=== PATIENT | female | born 1995 | race Caucasian/White ===

== ENCOUNTER → 2019-04-05 10:13 | Outpatient (BNVA) | payer MEDICAID, SELFPAY | PROVIDERS: Visit Provider Nurse Practitioner Women's Health | DX: Z34.81 Encounter for supervision of other normal pregnancy, first trimester; Z3A.09 9 weeks gestation of pregnancy | CPT/HCPCS: 84315 ==

== ENCOUNTER → 2019-04-17 15:18 | Outpatient (BNVA) | payer MEDICAID, SELFPAY | PROVIDERS: Visit Provider Obstetrics & Gynecology | DX: Z34.81 Encounter for supervision of other normal pregnancy, first trimester (principal) | CPT/HCPCS: 80307; 84315; 85027; 86592; 86762; 86803; 86850; 86900; 87086; 87340; 87806 ==

== ENCOUNTER → 2019-05-01 15:17 | Outpatient (BNVA) | payer BC, MEDICAID, SELFPAY | PROVIDERS: Visit Provider Obstetrics & Gynecology | DX: Z34.81 Encounter for supervision of other normal pregnancy, first trimester (principal); N89.8 Other specified noninflammatory disorders of vagina | CPT/HCPCS: 84315; 87070; 87491; 87591 ==

== ENCOUNTER → 2019-05-26 15:30 | Outpatient (BNVA) | payer MEDICAID, SELFPAY | PROVIDERS: Visit Provider Obstetrics & Gynecology | DX: Z01.89 Encounter for other specified special examinations (principal) | CPT/HCPCS: 84315 ==

== ENCOUNTER → 2019-06-21 10:44 | Outpatient (BNVA) | payer MEDICAID, SELFPAY | PROVIDERS: Visit Provider Obstetrics & Gynecology | DX: Z36.89 Encounter for other specified antenatal screening (principal); Z3A.20 20 weeks gestation of pregnancy | CPT/HCPCS: 76805 ==

== ENCOUNTER → 2019-06-27 14:11 | Outpatient (BNVA) | payer MEDICAID, SELFPAY | PROVIDERS: Visit Provider Obstetrics & Gynecology | DX: Z01.89 Encounter for other specified special examinations (principal) | CPT/HCPCS: 84315 ==

== ENCOUNTER → 2019-07-05 10:01 | Outpatient (BNVA) | payer MEDICAID, SELFPAY | PROVIDERS: Visit Provider Obstetrics & Gynecology | DX: Z34.92 Encounter for supervision of normal pregnancy, unspecified, second trimester (principal); Z3A.21 21 weeks gestation of pregnancy | CPT/HCPCS: 76816 ==

== ENCOUNTER → 2019-07-24 15:27 | Outpatient (BNVA) | payer MEDICAID, SELFPAY | PROVIDERS: Visit Provider Obstetrics & Gynecology | DX: Z34.90 Encounter for supervision of normal pregnancy, unspecified, unspecified trimester (principal) | CPT/HCPCS: 82950; 84315 ==

== ENCOUNTER → 2019-08-21 11:10 | Outpatient (BNVA) | payer MEDICAID, SELFPAY | PROVIDERS: Visit Provider Obstetrics & Gynecology | DX: Z34.83 Encounter for supervision of other normal pregnancy, third trimester (principal) | CPT/HCPCS: 84315; 85027 ==

== ENCOUNTER → 2019-10-16 14:19 | Outpatient (BNVA) | payer MEDICAID, SELFPAY | PROVIDERS: Visit Provider Obstetrics & Gynecology | DX: Z34.90 Encounter for supervision of normal pregnancy, unspecified, unspecified trimester (principal); Z34.83 Encounter for supervision of other normal pregnancy, third trimester | CPT/HCPCS: 84315; 87081 ==

== ENCOUNTER → 2019-10-30 14:05 | Outpatient (BNVA) | payer MEDICAID, SELFPAY | PROVIDERS: Visit Provider Obstetrics & Gynecology | DX: O99.013 Anemia complicating pregnancy, third trimester; Z3A.38 38 weeks gestation of pregnancy | CPT/HCPCS: 84315 ==

== ENCOUNTER 2019-11-09 10:22 | Observation (INO) | payer BC, MEDICAID, SELFPAY ==
[2019-11-09 10:31] VITALS: BP 128/74; PULSE 114
[2019-11-09 10:35] VITALS: RESP 18; TEMP 36.4
[2019-11-09 10:43] VITALS: BMI 25.4
[2019-11-09 11:01] VITALS: BP 99/61; PULSE 124
[2019-11-09 11:31] VITALS: BP 115/75; PULSE 105
[2019-11-09 12:01] VITALS: BP 111/69; PULSE 101
[2019-11-09 12:33] VITALS: BP 111/69; PULSE 101; RESP 18; TEMP 36.5
== END 2019-11-09 12:25 | disposition home or self-care (01) ==
PROVIDERS: Admitting Provider Obstetrics & Gynecology; PCP Obstetrics & Gynecology; Visit Provider Obstetrics & Gynecology
DX: O26.899 Other specified pregnancy related conditions, unspecified trimester (principal)
CPT/HCPCS: 99211; G0378; G0379

== ENCOUNTER → 2019-11-13 08:40 | Outpatient (BNVA) | payer BC, MEDICAID, SELFPAY | PROVIDERS: PCP Obstetrics & Gynecology; Visit Provider Obstetrics & Gynecology | DX: O48.0 Post-term pregnancy (principal); O99.013 Anemia complicating pregnancy, third trimester; Z3A.40 40 weeks gestation of pregnancy | CPT/HCPCS: 76816; 76819 ==

== ENCOUNTER 2019-11-13 13:24 | Inpatient (IN) | payer BC, MEDICAID, SELFPAY ==
[2019-11-13] VITALS (70 sets, daily range): BP systolic 0–150; BP diastolic 0–89; PULSE 75–130; RESP 16–18; TEMP 36.9–37.2; O2SAT 89–100; BMI 25.4
[2019-11-13] MEDS: miSOPROStol 100 mcg tablet 25 MCG VAGINAL (14:31)
[2019-11-13] MEDS: lactated ringers 1,000 ML 999 ML IV ×2 (19:00→20:02)
[2019-11-13 19:53] LABS: Basophils % 0.3 %; Eosinophils # 0.1 10^3/uL (0.0-0.8); Hemoglobin 12.8 g/dL (11.5-15.3); Lymphocytes # 2.4 10^3/uL (0.8-4.8); Lymphocytes % 18.3 %; Mean Corpuscular Hemoglobin 28.9 pg (28.0-34.0); Mean Corpuscular Volume 90.3 fL (81-99); Mean Platelet Volume 11.9 fL (7.4-10.4); Monocytes # 0.8 10^3/uL (0.2-0.9); Monocytes % 5.7 %; Neutrophils # 9.77 10^3/uL (1.8-7.7); Neutrophils % 74.2 %; Nucleated Red Blood Cells % 0 %; Platelet Count 246 10^3/cmm (130-400); Red Blood Count 4.43 10^6/uL (4.1-5.3); Red Cell Distribution Width 16.5 % (12.1-15.1); White Blood Count 13.2 10^3/uL (4.0-10.0)
--- NOTE | 2019-11-13 20:34 | P.ANESASSM_ITS ---
Pre-Anesthetic Assessment Pre-Anesthetic Assessment: Height/Weight: Height 1.65 m Weight 69.4 kg Temp Pulse Resp BP 98.5 F 83 18 125/63 11/13/19 17:32 11/13/19 17:29 11/13/19 17:32 11/13/19 17:29 Preop Diagnosis: IUP Proposed Procedure: -l-a-[id number]-r- Familial anesthetic complications: epidural Was Beta Peter taken within 24 hours: N/A Last In take: 12:00 Social: Social History: No alcohol and No tobacco (stop at 18) Exam: Pre-Anes Outpt Exam: alert, oriented x 3, clear to auscultation bilaterally and regular rate & rhythm Airway: Submandibular: WNL Cervical ROM: WNL MP: 2 Dentition: Full History/ROS: No significant history except as noted Anesthetic Plan: ASA status: 2 Anesthesia: Eval. for regional block and Regional (specify below) (epidural) Risk of > 500 ml blood loss (7ml/kg in children): No Meds/Allergies Current Medications: Current Medications Generic Name Dose Route Start Last Admin Trade Name Freq PRN Reason Stop Dose Admin Misoprostol 25 mcg 11/13/19 14:15 11/13/19 14:31 Cytotec VAGINAL 11/13/19 22:16 25 mcg Q4H JM Administration PFSH Anesthesia PFSH: Medical History Patient denies medical problems Denies htn,dm,thyroid,dvt/pe,herpes Surgical History No pertinent past surgical history Family History Grandmother Diabetes Paternal grandmother Hyperlipidemia Paternal grandmother Denies family history of CAD (coronary artery disease) Cancer Hypertension Stroke Social History (Updated 11/13/19 @ 09:45 by Sondra Salvador RN) Smoking and tobacco status: former smoker Quit status (tobacco): has quit using tobacco Former quit date comment: Smoked when she was 17 or 18. Alcohol intake: former Former alcohol use details: Socially before she found out she Female Reproductive History: : 3 Data Anesthesia CBC & Chem 7: 11/13/19 19:42 Other Labs: Laboratory Results - last 48 hr 11/13/19 11/13/19 14:40 19:42 WBC Cancelled 13.2 H Corrected WBC Cancelled RBC Cancelled 4.43 Hgb Cancelled 12.8 Hct Cancelled 40.0 MCV Cancelled 90.3 MCH Cancelled 28.9 MCHC Cancelled 32.0 RDW Cancelled 16.5 H Plt Count Cancelled 246 MPV Cancelled 11.9 H Gran % Cancelled Neut % (Auto) Cancelled 74.2 Lymph % (Auto) Cancelled 18.3 [place] % (Auto) Cancelled 5.7 Eos % (Auto) Cancelled 1.0 Baso % (Auto) Cancelled 0.3 Neut # (Auto) Cancelled 9.77 H Lymph # (Auto) Cancelled 2.4 [place] # (Auto) Cancelled 0.8 Eos # (Auto) Cancelled 0.1 Baso # (Auto) Cancelled 0.0 Absolute Gran (auto) Cancelled Nucleated RBC % (auto) Cancelled 0 Nucleated RBCs # Cancelled 0.0 Cardiac Studies: No Data to Display
--- NOTE | 2019-11-13 21:21 | PC.NURSE ---
PT SITTING UP IN BED FOR EPIDURAL
--- NOTE | 2019-11-13 21:23 | ANES.PROC ---
Anesthesia Procedures Procedure/Date: 11/13/19 Epidural: Time Out Performed: Yes Consents Signed: Procedure Consent and NPO Consent Consent: requested by attending/covering physician, from patient, risks and benefits reviewed and patient agrees to proceed Lumbar Level: L3-L4 Epidural position: sitting Epidural procedure: sterile prep of area (betadine), 1% lidocaine to numb the area, 18 g needle, negative for paresthesia passed, test dose given, 1.5% xylocaine 1:200k epi (5ml), 0.2% Ropivacaine bolus ml (5ml), placed PCEA, no systemic response, sterile dressing applied, L.U.D. no apparent complications and 0.2% Ropiavacaine @ mls/hr (13ml/hr)
[2019-11-13 22:11] LABS: Basophils % 0.2 %; Eosinophils # 0.1 10^3/uL (0.0-0.8); Eosinophils % 0.7 %; Hematocrit 38.3 % (37.0-47.0); Lymphocytes # 2.6 10^3/uL (0.8-4.8); Lymphocytes % 14.8 %; Mean Corpuscular HGB Conc 31.3 g/dL (30.0-36.0); Mean Corpuscular Hemoglobin 28.9 pg (28.0-34.0); Mean Corpuscular Volume 92.3 fL (81-99); Mean Platelet Volume 11.7 fL (7.4-10.4); Monocytes % 5.9 %; Neutrophils # 13.72 10^3/uL (1.8-7.7); Neutrophils % 77.8 %; Nucleated Red Blood Cells % 0 %; Platelet Count 247 10^3/cmm (130-400); Red Blood Count 4.15 10^6/uL (4.1-5.3); Red Cell Distribution Width 16.5 % (12.1-15.1); White Blood Count 17.6 10^3/uL (4.0-10.0)
--- NOTE | 2019-11-13 23:15 | P.PCNOB_ITS ---
Delivery Note: Date of delivery: November 13, 2019 Delivery: - PRE-DELIVERY DIAGNOSIS: 24-year-old 3 para 1-0-1-1 at 40 weeks and 5 days Elective induction of labor GBS negative Anemia on iron POST-DELIVERY DIAGNOSIS: Vaginal delivery on 11/13/2019 Placental abruption PROCEDURE: Vaginal delivery on 11/13/2019 ANESTHESIA: Epidural anesthesia, 2% lidocaine DELIVERING PHYSICIAN: aRchel Capps FACOG PRE-DELIVERY COURSE: Ms. Lozano is a 24-year-old 3 para 1-0-1-1 at 40 weeks and 5 days gestation who presented to labor and delivery for scheduled induction. On exam she was noted to be 3 cm, 60% and -1 station. Induction was started by Dr. Peterson with Cytotec placed at 2:15 PM on 11/13/2019. tracing was category 1 and she had no contractions initially. After about 3 hours of the Cytotec she started to have regular contractions every 1 to 2 minutes and was more uncomfortable and as a result she desired to have the epidural. She had made very minimal cervical change by that time and was 3 cm, 60% and 0 station at 6:30 PM. Since she was galen every 1 to 2 minutes decision was made to just observe her and see if she made any cervical change. She had made no further cervical change by around 8 PM and by then epidural was placed and she was comfortable. After the epidural when the nurse examined the patient she noted that at about 930 she was 6 cm 90% and +1 station with intact membranes however was having bright red vaginal bleeding that was not consistent and more than normal bloody show. I was notified at 9:35 PM and was on the floor at 10:07 PM. tracing was largely category 1 with 1 spontaneous 1 to 2-minute deceleration which resolved with position change. Patient had been having a slow trickle of blood. Based on everything we discussed that she is likely having a placental abruption and as long as tracing was overall reassuring that we could continue to try for a vaginal delivery. Artificial rupture of membranes was performed at 10:10 PM with clear fluid and she was 7 to 8 cm 100% and +1 station at that time. She made rapid cervical change and was fully dilated at 10:25 PM and set up in lithotomy position ready to push. tracing was overall reassuring with occasional variable decelerations with contractions. DELIVERY NOTE: She was set up in lithotomy position and was pushing effectively. She was noted to be +3 station and continued pushing well. Right mediolateral episiotomy was cut to expedite delivery. The head delivered in [place] position, nuchal cord x2- tight was present. The shoulders and rest of the body followed with her next push. It delivered through the nuchal cord as a nuchal cord was unable to be reduced prior. The baby's mouth and nose were suctioned and the baby, cord was cut and baby handed to the waiting operations manager Dr. Donohue. The placenta del ivered spontaneously intact with membranes immediately after delivery of baby and it was sent to pathology. The fundus was noted to be firm and well contracted. Manual examination showed no abnormalities within the uterus and clots were evacuated. The vagina and cervix were inspected and no cervical or sulcal lacerations were noted. The perineum was intact except for the right mediolateral episiotomy which was repaired with 3-0 Vicryl in a continuous interlocking fashion. Good hemostasis and reapproximation was obtained. Baby boy, [facility] born at 10:48 PM on 11/13/2019 with 7/9, weighing 3595 g, 7 pounds 15 ounces, 20-3/4 inches long. Placenta was delivered spontaneously intact with membranes at 20 2:51 PM. Cotyledons were intact , inserted umbilical cord with 3 vessels noted. Estimated blood loss 250 mL at time of delivery. 450 mL after abruption started. Complications-none, both baby and mother were left to recovery in stable condition. Coding Level of Care Code Acute Social Studies Department Chair for Jose Gould
[2019-11-13] MEDS: lidocaine 2% INJ 20 mL INJECTION (23:17)
[2019-11-13] MEDS: oxytocin 30 UNIT/500 ML BAG 600 UNIT IV (23:18)
[2019-11-14] VITALS (14 sets, daily range): BP systolic 92–119; BP diastolic 61–78; PULSE 78–104; RESP 16–17; TEMP 36.6–36.9; O2SAT 96–98
--- NOTE | 2019-11-14 02:25 | PC.NURSE ---
[id number] ANESTHESIA CALLED, WILL JUAN EISENBERG AND DR DAVIS, BY Ubaldo WELCH RN PER DR CAMARA'S REQUEST. [id number] - WILL JUAN EISENBERG HERE ON FLOOR 2199 - DR CARRILLO CALLED AND REQUESTED FOR DELIVERY. 2206 - DR. CAMARA ON FLOOR AND IN PATIENT ROOM.
[2019-11-14] MEDS: HYDROcodone-acetaminophen 5-325 mg Tablet PO (03:24)
--- NOTE | 2019-11-14 07:16 | ANE.PACU2 ---
Inpatient post-anesthesia follow up: Airway intact: Yes Vital signs: Temperature 98.4 F Pulse Rate 78 Respiratory Rate 16 Blood Pressure 113/68 Pulse Oximetry 96 Oxygen Delivery Me thod Room Air Oxygen Flow Rate Fraction of Inspir ed Oxygen Hydration adequate: Yes Nausea and vomiting: No Pain level: 5 Mental status: Baseline Additional Comments: No signs of infection at epidural site, no numbness/weakness of legs, denies headache, urinating
[2019-11-14] MEDS: docusate sodium 100 mg Capsule PO ×2 (08:43→18:10)
[2019-11-14] MEDS: prenatal vitamin Capsule 1 CAP PO (08:43)
[2019-11-14 11:47] LABS: Hematocrit 35.4 % (37.0-47.0); Hemoglobin 11.4 g/dL (11.5-15.3); Mean Corpuscular HGB Conc 32.2 g/dL (30.0-36.0); Mean Corpuscular Hemoglobin 29.8 pg (28.0-34.0); Mean Corpuscular Volume 92.7 fL (81-99); Mean Platelet Volume 11.7 fL (7.4-10.4); Platelet Count 214 10^3/cmm (130-400); Red Blood Count 3.82 10^6/uL (4.1-5.3); Red Cell Distribution Width 16.6 % (12.1-15.1); White Blood Count 16.3 10^3/uL (4.0-10.0)
--- NOTE | 2019-11-14 18:29 | P.PN_ITS ---
Subjective Subjective: Interval history: SUBJECTIVE: Ms. Lozano is doing well. She just has some perineal soreness and is using an ice pack but otherwise pain is minimal. Denies shortness of breath, chest pain, nausea, vomiting, fever, chills. She is tolerating regular diet and denies heavy vaginal bleeding. She is bottlefeeding her son and desires him to have a circumcision. She is bonding well with him. OBJECTIVE/PHYSICAL EXAM: Gen.: No acute distress Heart: S1-S2 heard, regular rate and rhythm Lungs: Clear to auscultation bilaterally Abdomen: Soft, fundus firm below umbilicus Legs: No calf tenderness, no pedal edema. ASSESSMENT AND PLAN: 24-year-old 3 para 2-0-1-2 status post vaginal delivery, day #1 -Placental abruption-vital signs stable, hemoglobin stable-DC IV at 24 hours -Encourage ambulation and p.o. pain medication -Perineal care -Circumcision discussed and consent signed-circumcision done today per request without complication -Anticipate discharge home tomorrow if she continues to do well. Vitals/I&O/Wt Last Vital Signs Temp 98.4 F 11/14/19 11:40 Pulse 78 11/14/19 11:40 Resp 17 11/14/19 11:40 BP 105/69 11/14/19 11:40 Pulse Ox 96 11/14/19 06:38 11/14/19 11/14/19 11/14/19 06:59 14:59 22:59 Intake Total 1627 / 2627 Output Total 1300 / 1300 Balance 327 / 1327 Weight last 48 hrs Weight 153 lb Data : 11/14/19 11:27 Attestations Medical Necessity Statement*: Patient needs to stay 1 more day to recover from delivery Coding Level of Care Code Acute Bricklayer Supervisor for Jose Gould
[2019-11-15 04:40] VITALS: BP 105/63; PULSE 82; RESP 16; TEMP 36.5
--- NOTE | 2019-11-15 07:02 | P.DS_ITS ---
Discharge Providers Date of Admission: 11/13/19 13:24 Date of Discharge: November 15, 2019 Attending Provider at Admission: Zachary Peterson MD Attending Provider at Discharge: Zachary Peterson MD Primary Care Provider: Zachary Peterson MD Reason for Visit Reason for Visit: induction of labor Hospital Course Discharge Summary: PRE-DELIVERY DIAGNOSIS: 24-year-old 3 para 1-0-1-1 at 40 weeks and 5 days Elective induction of labor GBS negative Anemia on iron POST-DELIVERY DIAGNOSIS: Vaginal delivery on 11/13/2019 Placental abruption PROCEDURE: Vaginal delivery on 11/13/2019 ANESTHESIA: Epidural anesthesia, 2% lidocaine DELIVERING PHYSICIAN: Rachel Capps FACOG PRE-DELIVERY COURSE: Ms. Lozano is a 24-year-old 3 para 1-0-1-1 at 40 weeks and 5 days gestation who presented to labor and delivery for scheduled induction. On exam she was noted to be 3 cm, 60% and -1 station. Induction was started by Dr. Peterson with Cytotec placed at 2:15 PM on 11/13/2019. tracing was category 1 and she had no contractions initially. After about 3 hours of the Cytotec she started to have regular contractions every 1 to 2 minutes and was more uncomfortable and as a result she desired to have the epidural. She had made very minimal cervical change by that time and was 3 cm, 60% and 0 station at 6:30 PM. Since she was galen every 1 to 2 minutes decision was made to just observe her and see if she made any cervical change. She had made no further cervical change by around 8 PM and by then epidural was placed and she was comfortable. After the epidural when the nurse examined the patient she noted that at about 930 she was 6 cm 90% and +1 station with intact membranes however was having bright red vaginal bleeding that was not consistent and more than normal bloody show. I was notified at 9:35 PM and was on the floor at 10:07 PM. tracing was largely category 1 with 1 spontaneous 1 to 2-minute deceleration which resolved with position change. Patient had been having a slow trickle of blood. Based on everything we discussed that she is likely having a placental abruption and as long as tracing was overall reassuring that we could continue to try for a vaginal delivery. Artificial rupture of membranes was performed at 10:10 PM with clear fluid and she was 7 to 8 cm 100% and +1 station at that time. She made rapid cervical change and was fully dilated at 10:25 PM and set up in lithotomy position ready to push. tracing was overall reassuring with occasional variable decelerations with contractions. DELIVERY NOTE: She was set up in lithotomy position and was pushing effectively. She was noted to be +3 station and continued pushing well. Right mediolateral episiotomy was cut to expedite delivery. The head delivered in [place] position, nuchal cord x2- tight was present. The shoulders and rest of the body followed with her next push. It delivered through the nuchal cord as a nuchal cord was unable to be reduced prior. The baby's mouth and nose were suctioned and the baby, cord was cut and baby handed to the waiting assistant community manager Dr. Donohue. The placenta ian ered spontaneously intact with membranes immediately after delivery of baby and it was sent to pathology. The fundus was noted to be firm and well contracted. Manual examination showed no abnormalities within the uterus and clots were evacuated. The vagina and cervix were inspected and no cervical or sulcal lacerations were noted. The perineum was intact except for the right mediolateral episiotomy which was repaired with 3-0 Vicryl in a continuous interlocking fashion. Good hemostasis and reapproximation was obtained. Baby boy, Hira born at 10:48 PM on 11/13/2019 with 7/9, weighing 3595 g, 7 pounds 15 ounces, 20-3/4 inches long. Placenta was delivered spontaneously intact with membranes at 20 2:51 PM. Cotyledons were intact , inserted umbilical cord with 3 vessels noted. Estimated blood loss 250 mL at time of delivery. 450 mL after abruption started. Complications-none, both baby and mother were left to recovery in stable condition. HOSPITAL COURSE: She underwent a vaginal delivery on 11/13/2019 complicated by placental abruption-see op procedure notes. She did well on day 0 and was ambulating well, tolerating regular diet, voiding freely, passing flatus. She was bottle -feeding without difficulty and bonding well with her son. Circumcision was performed on day of life 1 per her request without any difficulty.. Pain was well-controlled with by mouth pain medication. She denied nausea, vomiting, fever, chills, shortness of breath, leg pain. She had moderate vaginal bleeding. On day # 1 she continued to do well with stable vital signs and stable hemoglobin at 11.4. She was discharged home on day 2 in a stable condition. Warning signs for endometritis, mastitis, DVT/PE were reviewed with her. Post delivery activity restrictions were also reviewed with her at all her questions were answered to her satisfaction. Plans on using pills for contraception which will be started at a 6-week visit. EXAM AT DISCHARGE: Gen.: No acute distress Heart: S1-S2 heard, regular rate and rhythm Lungs: Clear to auscultation bilaterally Abdomen: Soft, fundus firm below umbilicus Legs: No calf tenderness, trace bilateral pitting pedal edema. CONDITION AT DISCHARGE: Stable Discharge Data Data Completed and Pending: Pending at discharge Category Date Time Status PRBC [Leukocyte R educed RBC] Routin e Lab 11/13/19 14:40 Results Type and Screen R outine Lab 11/13/19 14:40 Results Pathology: Surgic al [PTH] Stat Pth 11/14/19 12:16 Received Labs from last 24 hours 11/14/19 11:27 WBC 16.3 H RBC 3.82 L Hgb 11.4 L Hct 35.4 L MCV 92.7 MCH 29.8 MCHC 32.2 RDW 16.6 H Plt Count 214 MPV 11.7 H Vitals: Last Vital Signs Temp 97.7 F 11/15/19 04:40 Pulse 82 11/15/19 04:40 Resp 16 11/15/19 04:40 BP 105/63 11/15/19 04:40 Pulse Ox 98 11/14/19 22:45 Discharge Plan Discharge Patient Disposition: Home Condition: Stable Prescriptions: New hydrocodone-acetaminophen 5-325 mg tablet 1 tab PO Q6H Qty: 10 RF: 0 docusate sodium 100 mg Capsule 100 mg PO BID PRN (Reason: constipation) Qty: 30 RF: 0 ibuprofen 800 mg tablet 800 mg PO Q8H Qty: 30 RF: 0 Continued prenat.vits,dayron,inr-riwg-tcbaq Tablet 1 tab PO DAILY RF: 0 Discontinued ferrous sulfate 325 mg (65 mg iron) tablet,delayed release (DR/EC) 325 mg PO DAILY Qty: 30 RF: 2 Discharge Orders: Discharge Order (Routine); Ordered 11/15/19 Ordered By: Rachel Richard Referrals: Zachary Peterson MD [Primary Care Provider] - (6-week ) Discharge Diet: Usual diet Discharge Activity: Resume usual activity Activity Restrictions/Additional Instructions: Pelvic rest for 6 weeks, no heavy lifting for 6 weeks Discharge Attestations Time Spent in Discharge Care*: greater than 30 min Quality Metrics Clinical Quality Measures During this hospital stay, did patient experience: None Coding Level of Care Code Acute Model Maker Scale for Jose Gould
[2019-11-15] MEDS: acetaminophen 500 mg Tablet 1000 MG PO (07:42)
[2019-11-15 09:40] VITALS: BP 116/73; PULSE 96; RESP 18; TEMP 36.3
== END 2019-11-15 09:40 | disposition home or self-care (01) | DRG 807 ==
PROVIDERS: Obstetrics & Gynecology; Admitting Provider Obstetrics & Gynecology; PCP Obstetrics & Gynecology; Visit Provider Obstetrics & Gynecology
DX: O45.93 Premature separation of placenta, unspecified, third trimester (principal); Z37.0 Single live birth; O99.02 Anemia complicating childbirth; D64.9 Anemia, unspecified; O69.1XX0 Labor and delivery complicated by cord around neck, with compression, not applicable or unspecified; O76 Abnormality in fetal heart rate and rhythm complicating labor and delivery; Z3A.40 40 weeks gestation of pregnancy; Z87.891 Personal history of nicotine dependence
CPT/HCPCS: 12345; 36415; 51702; 59025; 59409; 84315; 85025; 85027; 86850; 86900; 86920; 88307; J2795

== ENCOUNTER → 2020-06-25 15:11 | Outpatient (BNVA) | payer OTHER, SELFPAY | PROVIDERS: PCP Obstetrics & Gynecology; Visit Provider Obstetrics & Gynecology | DX: Z32.01 Encounter for pregnancy test, result positive (principal) | CPT/HCPCS: 81025 ==

== ENCOUNTER → 2020-07-02 12:00 | Outpatient (BNVA) | payer OTHER, SELFPAY | PROVIDERS: PCP Obstetrics & Gynecology; Visit Provider Obstetrics & Gynecology | DX: Z34.80 Encounter for supervision of other normal pregnancy, unspecified trimester (principal) | CPT/HCPCS: 80307; 84315; 85027; 86592; 86762; 86803; 86850; 86900; 87086; 87340; 87806 ==

== ENCOUNTER → 2020-07-16 13:00 | Outpatient (BNVA) | payer OTHER, SELFPAY | PROVIDERS: PCP Obstetrics & Gynecology; Visit Provider Obstetrics & Gynecology | DX: Z34.80 Encounter for supervision of other normal pregnancy, unspecified trimester (principal); Z12.4 Encounter for screening for malignant neoplasm of cervix; Z3A.00 Weeks of gestation of pregnancy not specified | CPT/HCPCS: 84315; 87491; 87591; 88175 ==

== ENCOUNTER → 2020-11-07 10:04 | Outpatient (BNVA) | payer OTHER, SELFPAY | PROVIDERS: PCP Obstetrics & Gynecology; Visit Provider Nurse Practitioner Women's Health | DX: Z34.80 Encounter for supervision of other normal pregnancy, unspecified trimester (principal) | CPT/HCPCS: 82950; 84315; 85025 ==

== ENCOUNTER → 2020-12-27 10:07 | Outpatient (BNVA) | payer OTHER, SELFPAY | PROVIDERS: PCP Obstetrics & Gynecology; Visit Provider Nurse Practitioner Women's Health | DX: Z34.80 Encounter for supervision of other normal pregnancy, unspecified trimester (principal) | CPT/HCPCS: 84315; 87081 ==

== ENCOUNTER → 2021-01-17 11:10 | Outpatient (BNVA) | payer OTHER, SELFPAY | PROVIDERS: PCP Obstetrics & Gynecology; Visit Provider Obstetrics & Gynecology | DX: Z34.80 Encounter for supervision of other normal pregnancy, unspecified trimester (principal); Z20.822 Contact with and (suspected) exposure to COVID-19 | CPT/HCPCS: 87635 ==

== ENCOUNTER 2021-01-21 06:18 | Inpatient (IN) | payer OTHER, MEDICAID, SELFPAY ==
[2021-01-21] VITALS (182 sets, daily range): BP systolic 55–142; BP diastolic 36–85; PULSE 70–153; RESP 17–20; TEMP 36.8–36.9; O2SAT 89–100; BMI 25.9
[2021-01-21] MEDS: lactated ringers 1,000 ML 999 ML (07:05)
[2021-01-21 07:16] LABS: Basophils % 0.3 %; Eosinophils # 0.1 10^3/uL (0.0-0.8); Eosinophils % 1.5 %; Hematocrit 43.8 % (37.0-47.0); Hemoglobin 14.6 g/dL (11.5-15.3); Lymphocytes # 2.1 10^3/uL (0.8-4.8); Lymphocytes % 22.4 %; Mean Corpuscular HGB Conc 33.3 g/dL (30.0-36.0); Mean Corpuscular Hemoglobin 30.3 pg (28.0-34.0); Mean Corpuscular Volume 90.9 fl (81-99); Mean Platelet Volume 12.1 fL (7.4-10.4); Monocytes # 0.5 10^3/uL (0.2-0.9); Monocytes % 4.9 %; Neutrophils # 6.46 10^3/uL (1.8-7.7); Neutrophils % 70.6 %; Nucleated Red Blood Cells % 0 %; Platelet Count 240 10^3/cmm (130-400); Red Blood Count 4.82 10^6/uL (4.1-5.3); Red Cell Distribution Width 14.6 % (12.1-15.1); White Blood Count 9.2 10^3/uL (4.0-10.0)
--- NOTE | 2021-01-21 08:00 | PM.OPHPUD ---
Labor & Delivery H&P Update Date of Procedure: January 21, 2021 Date H&P Performed: 01/20/21 H&P update information: I have reviewed H&P completed within last 30 days, I have examined patient prior to procedure, No changes to prior documentation and H&P is in [facility] EMR on date indicated Admission Diagnosis: Preop diagnosis: IUP
[2021-01-21] MEDS: lactated ringers 1,000 ML 999 ML IV ×2 (08:07→09:14)
[2021-01-21] MEDS: ePHEDrine 50 mg/mL Inj 10 MG IVP ×2 (09:04→09:10)
[2021-01-21] MEDS: hyDROXYzine 25 mg Capsule 50 MG PO (09:36)
[2021-01-21] MEDS: dextrose 5%-lactated ringers 1,000 ML 125 ML IV ×2 (09:48→14:51)
[2021-01-21] MEDS: oxytocin 30 UNIT/500 ML BAG IV (09:48)
--- NOTE | 2021-01-21 11:39 | ANES.PREANE2 ---
Pre-Anesthetic Assessment Pre-Anesthetic Assessment: Height/Weight: Height 1.63 m Weight 68.492 kg Temp Pulse Resp BP Pulse Ox 98.5 F 83 17 108/66 100 01/21/21 10:41 01/21/21 11:32 01/21/21 10:41 01/21/21 11:27 01/21/21 11:32 Preop Diagnosis: IUP Proposed Procedure: epdirual Familial anesthetic complications: None Was Beta Peter taken within 24 hours: N/A Was Clonidine taken within 24 hours: N/A Social: Social History: No alcohol and No tobacco Exam: Pre-Anes Outpt Exam: alert, oriented x 3, clear to auscultation bilaterally and regular rate & rhythm Airway: Cervical ROM: WNL MP: 2 Dentition: Full Anesthetic Plan: ASA status: 2 Anesthesia: Regional (specify below) Risk of > 500 ml blood loss (7ml/kg in children): Yes, adequate IV access and fluids planned Meds/Allergies Current Medications: Current Medications Generic Name Dose Route Start Last Admin Trade Name Freq PRN Reason Stop Dose Admin Ephedrine Sulfate 10 mg 01/21/21 06:58 01/21/21 09:10 Ephedrine 50 Mg/ Ml Inj IVP 10 mg Q3M PRN Administration hypotension as di rected by Dr. Kit Mcwilliams e 50 mg 01/21/21 06:58 01/21/21 09:36 Hydroxyzine 25 M g Capsule PO 50 mg QID PRN Administration sleep, agitation or itching Lactated Ringer's 1,000 mls @ 999 m ls/hr 01/21/21 06:58 01/21/21 09:49 Lactated Ringers IV Infused .Q1H1M PRN Infusion Per L&D Rescitati on Protocol Dextrose/Lactated Ringer's 1,000 mls @ 125 m ls/hr 01/21/21 07:00 01/21/21 09:48 Dextrose 5%-Lact ated Ringers IV 125 mls/hr .Q8H JM Administration Ropivacaine 200 mg in 100 mls @ 13 mls/hr 01/21/21 07:45 01/21/21 09:12 Naropin Premix EPIDURAL 8 mls/hr .Q7H42M JM Administration Lactated Ringer's 1,000 mls @ 999 m ls/hr 01/21/21 07:44 01/21/21 09:14 Lactated Ringers IV Infused .Q1H1M PRN Infusion See label comment s Oxytocin 30 unit in 500 ml s @ 1 mls/hr 01/21/21 08:45 01/21/21 11:15 Pitocin IV 14 milliunit/min .Q24H JM 14 mls/hr Titration Protocol 1 MILLIUNIT/MIN PFSH Anesthesia PFSH: Medical History Patient denies medical problems Denies diabetes, asthma, hypertension, seizures DVT/PE PMD: none Surgical History No pertinent past surgical history Family History Grandmother Diabetes Paternal grandmother Hyperlipidemia Paternal grandmother Heart disease paternal Family/Other Uterine cancer Paternal Aunt--dx age 40's Denies family history of Colon cancer Ovarian cancer Breast cancer Hypertension Thyroid disease Stroke Female Reproductive History: : 4 Data Anesthesia CBC & Chem 7: 01/21/21 06:58 Other Labs: Laboratory Results - last 48 hr 01/21/21 06:58 WBC 9.2 RBC 4.82 Hgb 14.6 Hct 43.8 MCV 90.9 MCH 30.3 MCHC 33.3 RDW 14.6 Plt Count 240 MPV 12.1 H Neut % (Auto) 70.6 Lymph % (Auto) 22.4 [place] % (Auto) 4.9 Eos % (Auto) 1.5 Baso % (Auto) 0.3 Neut # (Auto) 6.46 Lymph # (Auto) 2.1 [place] # (Auto) 0.5 Eos # (Auto) 0.1 Baso # (Auto) 0.0 Nucleated RBC % (auto) 0 Nucleated RBCs # 0.0 Cardiac Studies: No Data to Display Anesthesia Procedures Epidural: Time Out Performed: Yes Consents Signed: Procedure Consent and NPO Consent Consent: requested by attending/covering physician, from patient, patient agrees to proceed and emergency procedure Lumbar Level: L3-L4 Epidural position: sitting Epidural procedure: sterile prep of area, 1% lidocaine to numb the area, 18 g needle, negative for paresthesia passed, neg for paresthesia, test dose given, 1.5% xylocaine 1:200k epi, 0.2% Ropivacaine bolus ml, placed PCEA, no systemic response, sterile dressing applied, L.U.D. no apparent complications and 0.2% Ropiavacaine @ mls/hr Additional Comments: Patient experienced significant parasthesia with threading of catheter (L leg) - pulled back catheter to 11 cm, negative aspiration, no pain upon injection of test dose. During ropi bolus 5 cc patient experienced low BP. Ephedrine 20 mg given in increments, placed L lateral, paused pump and bolus. Patient also stated legs adn bottom felt warm, but she was able to move her lower extremities. Aspirated catheter second time -negative for CSF. Restarted pump at very low dose 8 cc/hr. Patient stable
--- NOTE | 2021-01-21 16:00 | PM.DELIVERY ---
Delivery Note: Date of delivery: January 21, 2021 - PRE-DELIVERY DIAGNOSIS: 25-year old 4 para 2-0-1-2 at 39 weeks and 4 days gestation Elective induction History of placental abruption POST-DELIVERY DIAGNOSIS: Vaginal delivery on 01/21/2021 PROCEDURE: Vaginal delivery on 01/21/2021 ANESTHESIA: Epidural anesthesia DELIVERING PHYSICIAN: Rachel Capps FACOG PRE-DELIVERY COURSE: Ms. Lozano is a 25-year-old 4 para 2-0-1-2 at 39 weeks and 4 days who presented to labor and delivery on 01/21/2021 for scheduled induction of labor. On initial presentation to labor and delivery she had a category 1 tracing with occasional contractions. Cervix was noted to be 3 to 4 cm, 80% and -2 station. An IV was placed she had a vagal response and baby had deep spontaneous deceleration during that time however with IV fluid bolus and position changes both mother and baby recovered quickly. Baby was monitored for 1 to 2 hours and during this time tracing remained category 1 without any other concerns. Patient wanted an epidural and this was placed after which induction was started with Pitocin at about 10 AM. Pitocin was titrated to a maximum of 20 mg/min and because she started to have regular contractions. She made cervical change to 5 cm and artificial rupture of membranes was performed at 2:44 PM with clear fluid at which time she was 5 to 6 cm 90% and -1 station. tracing was category 1 with regular contractions every 2 to 3 minutes. She progressed rapidly after this and was fully dilated at 3:16 PM DELIVERY NOTE: She was set up in lithotomy position and was pushing effectively. She was noted to be +3 station and continued pushing well. The head delivered in [place] position, no nuchal cord was present. The shoulders and rest of the body followed with her next push. The baby's mouth and nose were suctioned and the baby was placed on the mother's belly. Once cord pulsations stopped the cord was clamped and cut. The placenta delivered spontaneously intact with membranes and was discarded. The fundus was noted to be firm and well contracted. The vagina and cervix were inspected and no cervical or sulcal lacerations were noted. There was a small second-degree perineal laceration which was repaired in the usual fashion. Good reapproximation and hemostasis was achieved. Baby [place] born at 3:41 PM on 01/21/2021 with 8/9, weighing 8 pounds 15 ounces, 4040 g, 21 inches long. Placenta was delivered spontaneously intact with membranes at 3:45 PM. Cotyledons were intact , eccentrically inserted umbilical cord with 3 vessels noted. Estimated blood loss 150 mL. Complications-none, both baby and mother were left to recover in a stable condition. This documentation was created by [employer] jacquard loom weaver software (known for inherent jacquard loom weaver error). Every effort was made to assure accuracy of jacquard loom weaver. Any obvious errors or omissions should be clarified with the author of the document. History History History 4 Term 3 Miscarriages/Ectopic 1 0 Living Children 3 Other History: 4, Para 3013 x 3, SAB x 1 1---> 03/2013, 6 week SAB-no D&C 2---> 04/08/2017, male,([facility]), 7 lbs 12 ozs, 40 wks, epidural, delivered Dr. Bunch at [facility] in [place], [place]. Delivery was uncomplicated. 3---> 11/13/2019, male,([facility]), 7 lbs 15 ozs, 40 5/7 wks, epidural, vaginal delivery by Dr. Capps at [facility], [place], [place]. labor was complicated by a mild placental abruption which did not affect baby's heart rate and she had an uncomplicated delivery. 4---> 01/21/2021, male, [place], 8 pounds 15 ounces, 39 weeks and 4 days, induction, epidural, vaginal delivery by Dr. Capps at [facility]. Second-degree perineal tear. Coding Level of Care Code Acute Torpedo Shooter for Jose Gould
[2021-01-21] MEDS: docusate sodium 100 mg Capsule PO (18:24)
[2021-01-21] MEDS: benzocaine-menthol 78 gm Canister 1 SPRAY TOPICAL (18:24)
[2021-01-21] MEDS: HYDROcodone-acetaminophen 5-325 mg Tablet PO (18:25)
[2021-01-21] MEDS: ibuprofen 800 mg tablet PO (20:34)
[2021-01-22] MEDS: HYDROcodone-acetaminophen 5-325 mg Tablet PO ×3 (00:26→17:52)
[2021-01-22 01:40] VITALS: BP 116/70; PULSE 81; RESP 16
[2021-01-22 05:40] VITALS: BP 111/68; PULSE 75; RESP 16; TEMP 36.7
[2021-01-22 06:07] LABS: Hemoglobin 12.4 g/dL (11.5-15.3); Mean Corpuscular HGB Conc 32.6 g/dL (30.0-36.0); Mean Corpuscular Hemoglobin 29.9 pg (28.0-34.0); Mean Corpuscular Volume 91.6 fl (81-99); Platelet Count 187 10^3/cmm (130-400); Red Blood Count 4.15 10^6/uL (4.1-5.3); Red Cell Distribution Width 14.7 % (12.1-15.1); White Blood Count 12.1 10^3/uL (4.0-10.0)
[2021-01-22] MEDS: ibuprofen 800 mg tablet PO ×2 (09:05→17:32)
[2021-01-22] MEDS: prenatal vitamin Capsule 1 CAP PO (09:05)
[2021-01-22] MEDS: docusate sodium 100 mg Capsule PO ×2 (09:05→17:52)
--- NOTE | 2021-01-22 09:43 | ANE.PACU2 ---
Inpatient post-anesthesia follow up: Airway intact: Yes Vital signs: Temperature 98.0 F Pulse Rate 75 Respiratory Rate 16 Blood Pressure 111/68 Pulse Oximetry 98 Oxygen Delivery Me thod Room Air Oxygen Flow Rate Fraction of Inspir ed Oxygen Hydration adequate: Yes Nausea and vomiting: No Pain level: 2 Mental status: Baseline
[2021-01-22 10:00] VITALS: BP 119/64; PULSE 72; RESP 18; TEMP 36.8
--- NOTE | 2021-01-22 12:36 | PM.OBGYDC ---
Discharge Providers CENTER RECEPTIONIST Date of Admission: 01/21/21 06:18 Date of Discharge: 01/22/21 Attending Provider at Admission: Rachel Richard MD Attending Provider at Discharge: Rachel Richard MD Primary Care Provider: PRE-DELIVERY DIAGNOSIS: 25-year old 4 para 2-0-1-2 at 39 weeks and 4 days gestation Elective induction History of placental abruption POST-DELIVERY DIAGNOSIS: Vaginal delivery on 01/21/2021 PROCEDURE: Vaginal delivery on 01/21/2021 ANESTHESIA: Epidural anesthesia DELIVERING PHYSICIAN: Rachel Capps FACOG PRE-DELIVERY COURSE: Ms. Lozano is a 25-year-old 4 para 2-0-1-2 at 39 weeks and 4 days who presented to labor and delivery on 01/21/2021 for scheduled induction of labor. On initial presentation to labor and delivery she had a category 1 tracing with occasional contractions. Cervix was noted to be 3 to 4 cm, 80% and -2 station. An IV was placed she had a vagal response and baby had deep spontaneous deceleration during that time however with IV fluid bolus and position changes both mother and baby recovered quickly. Baby was monitored for 1 to 2 hours and during this time tracing remained category 1 without any other concerns. Patient wanted an epidural and this was placed after which induction was started with Pitocin at about 10 AM. Pitocin was titrated to a maximum of 20 mg/min and because she started to have regular contractions. She made cervical change to 5 cm and artificial rupture of membranes was performed at 2:44 PM with clear fluid at which time she was 5 to 6 cm 90% and -1 station. tracing was category 1 with regular contractions every 2 to 3 minutes. She progressed rapidly after this and was fully dilated at 3:16 PM DELIVERY NOTE: She was set up in lithotomy position and was pushing effectively. She was noted to be +3 station and continued pushing well. The head delivered in [place] position, no nuchal cord was present. The shoulders and rest of the body followed with her next push. The baby's mouth and nose were suctioned and the baby was placed on the mother's belly. Once cord pulsations stopped the cord was clamped and cut. The placenta delivered spontaneously intact with membranes and was discarded. The fundus was noted to be firm and well contracted. The vagina and cervix were inspected and no cervical or sulcal lacerations were noted. There was a small second-degree perineal laceration which was repaired in the usual fashion. Good reapproximation and hemostasis was achieved. Baby [place] born at 3:41 PM on 01/21/2021 with 8/9, weighing 8 pounds 15 ounces, 4040 g, 21 inches long. Placenta was delivered spontaneously intact with membranes at 3:45 PM. Cotyledons were intact , eccentrically inserted umbilical cord with 3 vessels noted. Estimated blood loss 150 mL. Complications-none, both baby and mother were left to recover in a stable condition. HOSPITAL COURSE: She underwent an uncomplicated vaginal delivery on 01/21/2021. She did well on day 0 and was ambulating well, tolerating regular diet, voiding freely, passing flatus. She was formula feeding without difficulty and bonding well with her son. Circumcision was performed on him on day of life 1 per her request without any difficulty.. Pain was well-controlled with by mouth pain medication. She denied nausea, vomiting, fever, chills, shortness of breath, leg pain. She had moderate vaginal bleeding. On day # 1 she continued to do well with stable vital signs and stable hemoglobin at 12.4. She was discharged home on day 1 in a stable condition, as she desired early discharge. Warning signs for endometritis, mastitis, DVT/PE were reviewed with her. Post delivery activity restrictions were also reviewed with her at all her questions were answered to her satisfaction. Plans on using control pills for contraception which will be started at her 6-week visit. Abstinence until then. EXAM AT DISCHARGE: Gen.: No acute distress Heart: S1-S2 heard, regular rate and rhythm Lungs: Clear to auscultation bilaterally Abdomen: Soft, fundus firm below umbilicus, Legs: No calf tenderness, trace bilateral pitting pedal edema. CONDITION AT DISCHARGE: Stable This documentation was created by [employer] extruder tender software (known for inherent extruder tender error). Every effort was made to assure accuracy of extruder tender. Any obvious errors or omissions should be clarified with the author of the document. Reason for Visit Reason for Visit: IOL Information Peripartum Data: Delivery Method: Vaginal Physical Exam Urinary Catheter Management^: Brown: Cath Placed During This Visit: yes, but has since been removed by the nurse Reason for Continuing Indwelling Catheter: Decision to DC Catheter Urinary Catheter Date of Insertion: 01/21/21 Urinary Catheter Time of Insertion: 09:25 Date Urinary Catheter Removed: 01/21/21 Time Urinary Catheter Discontinued: 15:25 History History History 4 Term 3 Miscarriages/Ectopic 1 0 Living Children 3 Other History: 4, Para 3013 x 3, SAB x 1 1---> 03/2013, 6 week SAB-no D&C 2---> 04/08/2017, male,([facility]), 7 lbs 12 ozs, 40 wks, epidural, delivered Dr. Bunch at [facility] in [place], [place]. Delivery was uncomplicated. 3---> 11/13/2019, male,([facility]), 7 lbs 15 ozs, 40 5/7 wks, epidural, vaginal delivery by Dr. Capps at [facility], [place], [place]. labor was complicated by a mild placental abruption which did not affect baby's heart rate and she had an uncomplicated delivery. 4---> 01/21/2021, male, [facility], 8 pounds 15 ounces, 39 weeks and 4 days, induction, epidural, vaginal delivery by Dr. Capps at [facility]. Second-degree perineal tear. Discharge Data Data Completed and Pending: Labs from last 24 hours 01/22/21 05:24 WBC 12.1 H RBC 4.15 Hgb 12.4 Hct 38.0 MCV 91.6 MCH 29.9 MCHC 32.6 RDW 14.7 Plt Count 187 MPV 12.0 H Vitals: Last Vital Signs Temp 98.2 F 01/22/21 10:00 Pulse 72 01/22/21 10:00 Resp 18 01/22/21 10:00 BP 119/64 01/22/21 10:00 Pulse Ox 98 01/21/21 23:40 Discharge Plan Discharge Patient Disposition: Home Condition: Stable Prescriptions: New docusate sodium 100 mg Capsule 100 mg PO BID PRN (Reason: constipation) Qty: 30 RF: 0 ibuprofen 800 mg tablet 800 mg PO Q8H Qty: 30 RF: 0 Continued prenat.vits,dayron,ulq-[id number] Tablet 1 tab PO DAILY RF: 0 Zyrtec 10 mg capsule 10 mg PO DAILY PRN (Reason: Allergy Symptoms) RF: 0 Unisom (doxylamine) 25 mg tablet 25 mg PO DAILY PRN (Reason: Sleep) RF: 0 Discharge Orders: Discharge Order (Routine); Ordered 01/22/21 Ordered By: Rachel Richard Referrals: Rachel Richard MD [Physician] - Discharge Diet: Regular Discharge Activity: Limit activity as instructed Patient Instructions: Opioid Safety Activity Restrictions/Additional Instructions: Pelvic rest for 6 weeks, no heavy lifting for 6 weeks, follow-up for 6-week visit with Dr. Capps. Discharge Attestations CENTER RECEPTIONIST Time Spent in Discharge Care*: greater than 30 min Coding Level of Care Code Acute Security Consultant for Jose Gould
[2021-01-22 17:30] VITALS: BP 114/73; PULSE 87; RESP 18; TEMP 36.7; O2SAT 99
== END 2021-01-22 18:00 | disposition home or self-care (01) | DRG 807 ==
LOC: OPOB 06:19 → OBGYN 06:19
PROVIDERS: Admitting Provider Obstetrics & Gynecology; PCP Obstetrics & Gynecology; Visit Provider Obstetrics & Gynecology
DX: O99.344 Other mental disorders complicating childbirth (principal); Z37.0 Single live birth; F41.9 Anxiety disorder, unspecified; O76 Abnormality in fetal heart rate and rhythm complicating labor and delivery; O70.1 Second degree perineal laceration during delivery; Z3A.39 39 weeks gestation of pregnancy
CPT/HCPCS: 36415; 51702; 59025; 59409; 85025; 85027; 96374; 96376; 99211; J2795

== ENCOUNTER → 2023-02-25 09:45 | Outpatient (BNVA) | payer OTHER, MEDICAID, SELFPAY | PROVIDERS: PCP Obstetrics & Gynecology; Visit Provider Clinical Nurse Specialist Adult Health | DX: Z30.9 Encounter for contraceptive management, unspecified (principal) | CPT/HCPCS: 81025 ==

== ENCOUNTER 2023-04-28 07:23 | Emergency (ER) | payer OTHER, SELFPAY ==
[2023-04-28 07:36] VITALS: BP 137/95; PULSE 126; TEMP 37.1; O2SAT 98; BMI 21.4
[2023-04-28 09:27] VITALS: BP 118/73; PULSE 106; RESP 18; O2SAT 98
--- NOTE | 2023-04-28 11:49 | ED_ITS ---
HPI - URI/Sore Throat General: Chief Complaint: Upper Respiratory Infection Stated Complaint: Fever, Cough,Congestion Time Seen by Provider: 04/28/23 07:23 Source: patient Mode of arrival: ambulatory History of Present Illness: 27-year-old female presents emergency ro om clinical fever nausea vomiting myalgias for the last 2 days no diarrhea she is accompanied by 2 children her who all have similar symptoms. She had very slight productive cough some shortness of breath she noted significant myalgias recurrent fever which has been responsive to Tylenol and ibuprofen. Additionally patient has a small labia majora abscess that has drained slightly she wanted us to evaluate. MD elicited complaint: fever, cough, sore throat and nasal congestion Onset (ago): day(s) (2) Consistency: constant Severity: mild Description of mucous: clear Able to tolerate fluids by mouth: Yes Exacerbating factors: nothing Relieving factors: nothing Associated symptoms: Reports nasal congestion and nausea; Deny abdominal pain, change in voice, chills, chest pain, congestion, cough, diarrhea, epistaxis, ear or mastoid pain, fever(s), headache(s), myalgias, rash, rhinorrhea, short of breath, sinus pain, stiffness, sore throat or vomiting Review of Systems Const: Denies: fever(s) or chills ENMT: Reports: nasal congestion; Denies: ear or mastoid pain, epistaxis or sinus pain Card: Denies: chest pain Resp: Denies: dyspnea GI: Reports: nausea; Denies: abdominal pain, vomiting or diarrhea : Denies: dysuria, urinary frequency or urinary urgency Musc: Denies: neck pain or back pain Skin/Breast: Denies: rash Neuro: Denies: headache(s) PFSH ED PFSH: Medical History (Updated 04/28/23 @ 09:09 by Antonio Vincent DO) Herpes simplex labialis Anxiety post in nature Patient denies medical problems Denies diabetes, asthma, hypertension, seizures DVT/PE Surgical History No pertinent past surgical history Family History Grandmother Diabetes Paternal grandmother Hyperlipidemia Paternal grandmother Heart disease paternal Family/Other Uterine cancer Paternal Aunt--dx age 40's Denies family history of Colon cancer Ovarian cancer Breast cancer Hypertension Thyroid disease Stroke Social History Smoking and tobacco/nicotine status: former use of tobacco/nicotine Quit status (tobacco/nicotine): has quit using Year quit tobacco: age 20 Alcohol intake: current Alcohol intake frequency: holidays/special occasions only Substance/Drug Use: never Physical Exam Const: COMMON NORMALS: no acute distress GENERAL APPEARANCE: cooperative and comfortable ORIENTATION/CONSCIOUSNESS: Yes awake, Yes oriented to person, Yes oriented to place and Yes oriented to time HENMT: COMMON NORMALS: normocephalic, atraumatic and hearing grossly normal bilaterally HEAD & SCALP: normocephalic and atraumatic Resp: COMMON NORMALS: normal respiratory effort, No retractions, No use of accessory muscles and clear to auscultation bilaterally AUSCULTATION: clear to auscultation bilaterally Cardio: COMMON NORMALS: regular rate, regular rhythm and No murmurs present (Cardio) RATE: regular rate RHYTHM: regular rhythm GI: COMMON NORMALS: Soft to palpation and No hepatosplenomegaly present AUSCULTATION: Yes normoactive bowel sounds PALPATION: Yes Soft to palpation, No Tenderness to palpation present (GI), No Guarding due to palpation present (GI) and Yes No hepatosplenomegaly present : OTHER: Small superficial abscess on the inferior aspect left mid labia majora. Exam done with nurse present. Minimal drainage moderately tender localized erythema nonfluctuant some underlying tissue induration. Extremity: COMMON NORMALS: normal to inspection, capillary refill normal, no clubbing, cyanosis or edema, no calf tenderness and no pedal edema Neuro: SENSORIUM/ORIENTATION: Yes oriented to person, Yes oriented to place and Yes oriented to time Skin: COMMON NORMALS: no rashes or lesions noted GENERAL SKIN EXAM: no rashes or lesions noted Course Vital Signs: Vital signs: Vital Signs Temperature 98.7 F 04/28/23 07:36 Pulse Rate 106 H 04/28/23 09:27 Respiratory Rate 18 04/28/23 09:27 Blood Pressure 118/73 04/28/23 09:27 Pulse Oximetry 98 04/28/23 09:27 Oxygen Delivery Me thod Room Air 04/28/23 09:27 MDM - URI/Sore Throat Medical Decision Making Another family member who currently had a fever was swabbed suspected over that swab shows is likely also what she has. Additionally put her on Bactrim for the labial abscess if this worsens or changes return to the emergency room Medical Records I reviewed the patient's medical records. No radiology studies performed this visit Discharge Plan Discharge Patient Disposition: Home Clinical Impression: Viral syndrome, Abscess of skin Condition: Stable Prescriptions: New Bactrim DS 800-160 mg tablet 1 tab PO BID 7 Days Qty: 14 0RF No Action loratadine [Allergy Relief (loratadine)] 10 mg tablet 10 mg PO DAILY norgestimate-ethinyl estradiol [Ortho Tri-Cyclen (28)] 0.18/0.215/0.25 mg-35 mcg (28) tablet 1 tab PO DAILY Qty: 84 3RF Discharge Orders: Discharge ED (Routine); Ordered 04/28/23 Ordered By: Antonio Vincent Discharge Diet: Usual diet Discharge Activity: Resume usual activity Patient Instructions: Opioid Safety, Pain Management Activity Restrictions/Additional Instructions: Thank you for choosing [facility] for your healthcare needs today. Please realize this is an emergency room and that we are providing you with a medical screening exam and this may not be complete and all inclusive of all the testing and or work up that you may need to determine your ailment or severity of your illness. It is very important that you follow up as instructed or that you return to the Emergency Department should you have concerns or if your condition changes or worsens in any way. Coding Level of Care Code ED Green Building Materials Distributor for Jose Gould
== END 2023-04-28 09:48 | disposition home or self-care (01) ==
PROVIDERS: Emergency Provider Family Medicine
DX: B34.9 Viral infection, unspecified (principal); N76.4 Abscess of vulva; Z87.891 Personal history of nicotine dependence
CPT/HCPCS: 99283